=== PATIENT | female | born 1955 | race African-American/Black ===

== ENCOUNTER 2019-04-07 12:06 | Day surgery (SDC) | payer OTHER ==
[2019-04-07] MEDS ORDERED: LIDOCAINE 100 MG SYRINGE (16:31)
[2019-04-07] MEDS ORDERED: PROPOFOL 40 ML (16:31)
[2019-04-07] MEDS ORDERED: GLYCOPYRROLATE 0.4 MG INJ (16:31)
[2019-04-07] MEDS ORDERED: PANTOPRAZOLE (EC) 40 MG TAB PO (18:00)
== END 2019-04-07 21:51 | disposition home or self-care (01) ==
LOC: GIL 12:06
DX: Z12.11 Encounter for screening for malignant neoplasm of colon (principal); D12.2 Benign neoplasm of ascending colon; D12.4 Benign neoplasm of descending colon; D12.5 Benign neoplasm of sigmoid colon; K29.30 Chronic superficial gastritis without bleeding; I10 Essential (primary) hypertension; E78.5 Hyperlipidemia, unspecified
CPT/HCPCS: 43239; 88305; 88312